=== PATIENT | female | born 1965 | race Caucasian/White ===

== ENCOUNTER 2017-12-31 14:33 | Outpatient (CLI) | payer BC | END 2017-12-31 14:34 | disposition home or self-care (01) | LOC: BICMAMMO 14:33 | PROVIDERS: ATTEND Student in an Organized Health Care Education/Training Program | DX: N64.52 Nipple discharge (principal); N64.4 Mastodynia | CPT/HCPCS: 77066; G0279 ==

== ENCOUNTER 2018-01-07 07:37 | Outpatient (CLI) | payer BC ==
[2018-01-07] MEDS ORDERED: Gadobenate Dimeglumine 529 MG/1 ML (20ML VIAL) ONE (13:57)
== END 2018-01-07 07:38 | disposition home or self-care (01) ==
LOC: BICMRI 07:37
PROVIDERS: ATTEND Student in an Organized Health Care Education/Training Program
DX: N64.52 Nipple discharge (principal)
CPT/HCPCS: A9579; C8908

== ENCOUNTER 2018-06-11 16:52 | Observation (INO) | payer BC ==
[2018-06-11] MEDS ORDERED: Nitroglycerin 0.4 MG TAB (25 Tab Bottle) ONE (17:28)
[2018-06-11 17:32] LABS: #Basophils 0.1 thou/uL (0.0-0.2); #Eosinphils 0.2 thou/uL (0.0-0.7); #Lymphocytes 2.4 thou/uL (1.20-3.40); #Monocytes 0.5 thou/uL (0.11-0.59); #Neutrophils 3.5 thou/uL (1.40-6.50); %Basophils 1.1 % (0.0-1.0); %Eosinophils 2.6 % (0.0-10.0); %Lymphocytes 35.7 % (21.0-51.0); %Monocytes 7.8 % (0.0-10.0); %Neutrophils 52.8 % (42.0-75.0); Hemoglobin 15.4 g/dL (12.0-16.0); Mean Corpuscular HGB CONC 34.3 g/dL (32.0-36.0); Mean Corpuscular Hemoglobin 34.3 pg (27.0-31.0); Mean Corpuscular Volume 99.8 fL (78.0-98.0); Mean Platelet Volume 7.9 fL (7.4-10.4); Platelet Count 198 thou/uL (130-400); RBC Distribution Width 11.8 % (11.5-14.5); White Blood Cell (WBC) Count 6.7 thou/uL (4.8-10.8)
[2018-06-11 17:53] LABS: ALT (SGPT) 33 U/L (8-55); AST (SGOT) 22 U/L (5-34); Albumin 4.4 g/dL (3.5-5.0); Alkaline Phosphatase 79 U/L (40-150); Anion Gap 13 mmol/L (10-20); BUN (Urea Nitrogen) 13 mg/dL (9.8-20.1); Bilirubin, Total 0.5 mg/dL (0.2-1.2); CK (CPK) 96 U/L (29-168); Calc. Creatinine Clearance 0 mL/min (70-130); Calcium 9.4 mg/dL (7.8-10.44); Carbon Dioxide 24 mmol/L (22-29); Chloride 104 mmol/L (98-107); Estimated GFR-MDRD 74; Globulin 2.8 g/dL (2.4-3.5); Glucose 106 mg/dL (70-105); Lipase 22 U/L (8-78); Potassium 3.4 mmol/L (3.5-5.1); Protein, Total 7.2 g/dL (6.0-8.3); Sodium 138 mmol/L (136-145)
--- NOTE | 2018-06-11 17:57 | RAD ---
CHEST ONE VIEW: 06/11/18 HISTORY: Chest pain. COMPARISON: None. FINDINGS: Mild increased interstitial markings of the lung bases. Mild reverse S-shaped scoliosis. Cardiac silh ouette and mediastinal contours are within normal limits. IMPRESSION: Mild increase interstitial markings in the lung bases may be sequela of atypical infectious process. POS: [facility]
[2018-06-11 19:08] LABS: CKMB 0.8 ng/mL (0-6.6); Troponin I Less than 0.010 ng/mL (< 0.028)
[2018-06-11] MEDS ORDERED: Acetaminophen 325 MG TAB PO PRN (21:42)
[2018-06-11] MEDS ORDERED: Ondansetron HCl/PF 4 MG/2 ML Vial IVP PRN (21:42)
[2018-06-11] MEDS ORDERED: Zolpidem Tartrate 5 MG TAB PO PRN (21:44)
[2018-06-11] MEDS ORDERED: ALPRAZolam 0.5 MG TAB PO PRN (21:44)
--- NOTE | 2018-06-11 23:36 | HP ---
PRIMARY CARE PHYSICIAN: Jose Juan Marmolejo M.D. CODE STATUS: FULL CODE. TIME OF EVALUATION: 8:35 p.m. CHIEF COMPLAINT: Chest pain. HISTORY OF PRESENT ILLNESS: This is a 53 years old female patient with past medical history of hypertension. The patient came to the hospital after having a chest pain that was on the left lower rib cage area, occasionally radiating to the right, with no clear triggers, no alleviating factors, pain was on and off. The patient reported her father with acute WI at the age of 50s associated with nausea. REVIEW OF SYSTEMS: Constitutional: No fever or chills or generalized weakness. Respiratory: No cough, sputum production or shortness of breath. Cardiovascular: The patient had chest pain, no palpitations. Gastrointestinal : No nausea, vomiting, diarrhea or abdominal pain. PATIENT ADMITTING CLERK: No dizziness, headache or feeling lightheaded. Genitourinary: No burning on urination. Extremities: No leg swelling. All other systems were reviewed and negative except for the findings mentioned above. PAST MEDICAL HISTORY: History of hypertension. PAST SURGICAL HISTORY: Breast reduction, orthopedic surgery, right shoulder surgery. PSYCHIATRIC HISTORY: Includes anxiety, depression. SOCIAL HISTORY: The patient drinks socially every week, 3-4 times a week drinks wine. FAMILY HISTORY : Reviewed and non contributory for current presentation. KNOWN ALLERGIES: None. REPORTED MEDICATIONS: Hydrochlorothiazide, lisinopril, Xanax, Ambien. PHYSICAL EXAMINATION: VITAL SIGNS: On presentation, blood pressure 160/80 with heart rate 74, respiratory rate was 16, temperature 98.1, pain was zero, and O2 saturation was 99. GENERAL APPEARANCE: The patient is alert, oriented, not in any acute distress. HEENT: Eyes: Normal conjunctivae. Moist oral mucosa. Anicteric. NECK: No JVD. RESPIRATORY: Bilateral air entry. No rales, no wheezing. Symmetric expansion. CARDIOVASCULAR: Normal rate, regular rhythm. No murmurs, no gallop. No edema. ABDOMEN: Soft, normal bowel sounds. MUSCULOSKELETAL: Baseline range of motion and strength. No tenderness. SKIN: Warm and intact. No pallor, no rash, no redness. Peripheral pulses are present. Capillary refill seems to be intact. Needle was not inserted. No evidence of any new focal weakness. Baseline speech. Cranial nerves seem to be intact. PSYCHIATRIC: The patient is in good mood, no anxiety, oriented, optimal judgement. EKG was reviewed. The patient had normal sinus rhythm with a rate of 69 with occasional PVCs, incomplete RBBB. Chest x-ray was reviewed. The patient has mild increased interstitial markings in the lungs basis may be sequela of a typical infectious process. LABORATORY DATA: The labs were reviewed. The patient has white count of 6.7, hemoglobin 15.4, hematocrit 44.9, MCV 99.8, platelet count 198. Sodium 138, potassium 3.4, chloride 104, carbon dioxide 24, anion gap 13, BUN 13, creatinine 0.8, GFR 74, glucose 106, calcium 9.4, total bilirubin 0.5, AST 22, ALT 33, alkaline phosphatase 79, CK 96, troponin was negative. Serum total protein 7.2, albumin 4.4, globulin 2.8, lipase 22. ASSESSMENT AND PLAN: The patient will be placed in the hospital with the following medical problems. 1. Chest pain, rule out acute coronary syndrome. The patient has negative troponin, nondiagnostic EKG. We will keep her on a monitor overnight. We will trend troponins, stress test has been discussed with the patient, the risks and benefits have been discussed in detail. She is willing to take the test in the morning tomorrow, we will treat depending on test results. 2. Uncontrolled high blood pressure with systolic blood pressure of 160, we will reconcile home medications, might need IV p.r.n. for optimal control. 3. Deep venous thrombosis prophylaxis. MTDD
[2018-06-12 00:25] LABS: Troponin I Less than 0.010 ng/mL (< 0.028)
[2018-06-12 03:33] LABS: Troponin I Less than 0.010 ng/mL (< 0.028)
[2018-06-12 04:39] LABS: #Basophils 0.1 thou/uL (0.0-0.2); #Eosinphils 0.2 thou/uL (0.0-0.7); #Lymphocytes 2.3 thou/uL (1.20-3.40); #Monocytes 0.6 thou/uL (0.11-0.59); #Neutrophils 3.1 thou/uL (1.40-6.50); %Eosinophils 3.3 % (0.0-10.0); %Lymphocytes 36.1 % (21.0-51.0); %Monocytes 10.3 % (0.0-10.0); %Neutrophils 49.4 % (42.0-75.0); Hemoglobin 13.9 g/dL (12.0-16.0); Mean Corpuscular HGB CONC 34.5 g/dL (32.0-36.0); Mean Corpuscular Hemoglobin 34.9 pg (27.0-31.0); Platelet Count 178 thou/uL (130-400); RBC Distribution Width 11.8 % (11.5-14.5); Red Blood Cell (RBC) Count 3.97 mill/uL (4.20-5.40); White Blood Cell (WBC) Count 6.2 thou/uL (4.8-10.8)
[2018-06-12 05:08] LABS: Anion Gap 11 mmol/L (10-20); BUN (Urea Nitrogen) 14 mg/dL (9.8-20.1); Calc. Creatinine Clearance 122 mL/min (70-130); Calcium 8.6 mg/dL (7.8-10.44); Carbon Dioxide 27 mmol/L (22-29); Chloride 108 mmol/L (98-107); Estimated GFR-MDRD 76; Glucose 99 mg/dL (70-105); Potassium 3.9 mmol/L (3.5-5.1); Sodium 142 mmol/L (136-145)
[2018-06-12] MEDS ORDERED: Aspirin 325 MG TAB PO SCH (09:00)
[2018-06-12] MEDS ORDERED: Enoxaparin Sodium 40 MG/0.4 ML SYRINGE SC SCH (09:00)
--- NOTE | 2018-06-12 09:07 | PDOC.PN ---
- Subjective Encounter Start Date: 06/12/18 Encounter Start Time: 08:00 Subjective: no sob/palp/cough or fever - Objective Resuscitation Status: Resuscitation Status FULL:Full Resuscitation MAR Reviewed: Yes Vital Signs & Weight: Vital Signs (12 hours) Temp Pulse Resp BP BP Pulse Ox 06/12/18 07:10 98.1 F 60 16 107/65 99 06/12/18 02:50 63 18 101/56 L 98 06/11/18 21:22 98.2 F 61 18 114/81 98 Weight Weight 205 lb 4.8 oz Result Diagrams: 06/12/18 04:13 06/12/18 04:13 Phys Exam - Physical Examination HEENT: PERRLA, moist MMs Neck: no JVD, supple Respiratory: no wheezing, no rales Cardiovascular: RRR, no significant murmur Gastrointestinal: soft, non-tender, positive bowel sounds Musculoskeletal: no edema, pulses present Neurological: non-focal, moves all 4 limbs Psychiatric: normal affect, A&O x 3 Dx/Plan (1) Chest pain Code(s): R07.9 - CHEST PAIN, UNSPECIFIED Status: Acute Qualifiers: Chest pain type: unspecified Qualified Code(s): R07.9 - Chest pain, unspecified (2) Obesity (BMI 30.0-34.9) Code(s): E66.9 - OBESITY, UNSPECIFIED Status: Chronic (3) HTN (hypertension) Code(s): I10 - ESSENTIAL (PRIMARY) HYPERTENSION Status: Chronic Qualifiers: Hypertension type: essential hypertension Qualified Code(s): I10 - Essential (primary) hypertension - Plan for cardiolite stress test today, has incomplete lbbb -: hemostable -: await stress results * . Review of Systems - Medications/Allergies Allergies/Adverse Reactions: Allergies Allergy/AdvReac Type Severity Reaction Status Date / Time No Known Allergies Allergy Verified 06/11/18 21:36 Medications: Current Medications Acetaminophen (Tylenol) 650 mg PO Q4H PRN PRN Reason: Headache/Fever or Pain Alprazolam (Xanax) 0.5 mg PO HS PRN PRN Reason: Insomnia Aspirin (Aspirin) 325 mg PO DAILY [facility] Last Admin: 06/12/18 08:25 Dose: 325 mg Enoxaparin Sodium (Lovenox) 40 mg SC 0900 [facility] Last Admin: 06/12/18 08:25 Dose: 40 mg Hydrochlorothiazide (Hydrochlorothiazide) 25 mg PO HS [facility] Lisinopril (Zestril) 5 mg PO HS [facility] Ondansetron HCl (Zofran) 4 mg IVP Q6H PRN PRN Reason: Nausea/Vomiting Zolpidem Tartrate (Ambien) 5 mg PO HS PRN PRN Reason: Insomnia
[2018-06-12 17:15] VITALS: BP 102/58; TEMP 97.5
--- NOTE | 2018-06-12 17:20 | NM ---
NUCLEAR MEDICINE CARDIAC STRESS TEST WITH EJECTION FRACTION 06/12/18 HISTORY: Chest pain. COMPARISON: None. FINDINGS: Stress and rest performed after the intravenous administration of 30 and 11 millicuries technetium 99 m Sestamibi, respectively. There is adequate left ventricular uptake of radiotracer. No scar or ischemia. Normal wall motion. Ca lculated ejection fraction is 82%. IMPRESSION: Normal nuclear medicine cardiac stress and ejection fraction. POS: [facility]
[2018-06-12] MEDS ORDERED: Lisinopril 5 MG TAB PO SCH (21:00)
[2018-06-12] MEDS ORDERED: Hydrochlorothiazide 25 MG TAB PO SCH (21:00)
--- NOTE | 2018-06-15 09:57 | DIS ---
DATE OF ADMISSION: 06/11/2018 DATE OF DISCHARGE: 06/12/2018 DISCHARGE DISPOSITION: To home. PRIMARY DISCHARGE DIAGNOSIS: Chest pain, which is noncardiac. SECONDARY DISCHARGE DIAGNOSES: Hypertension, obesity. PROCEDURES DONE DURING HOSPITALIZATION: Chest x-ray done showed him to mild increase in interstitial markings. Nuclear stress test done showed no scar or ischemia and normal wall motion with ejection fraction of 82%. H&H 13 and 40, white count of 6 with 49% neutrophils. Troponin x3 negative CK-MB 0 .8. BNP 11. DISCHARGE MEDICATIONS: Hydrochlorothiazide 25 mg p.o. at bedtime, Xanax 0.5 mg p.o. at bedtime p.r.n . for insomnia, lisinopril 5 mg p.o. at bedtime, zolpidem 5 mg p.o. at bedtime p.r.n. ALLERGIES: No known drug allergies. DISCHARGE PLAN: The patient to follow up with primary care physician in 1 week. BRIEF COURSE DURING HOSPITALIZATION: The patient initially came in with complaints of chest pain in the left lower ribcage area. In view of risk factors, the patient was placed under observation on te lemetry and has had ACS evidence based protocol followed. She has had 3 sets of troponin, which are negative and a nuclear stress test done showed no reversible ischemia. She has remained chest pain f ree and will be shortly discharged home. She needs follow up with her primary care physician in 1 we ek. Please see a [id number] documentation for the day of discharge on [facility].
--- NOTE | 2018-06-18 09:28 | STRESS ---
Acquisition Time: 2018-06-12 15:40:08 Total Exercise Time: 00:08:00 Test Indications: CHEST PAIN Medications: Protocol: DEN Max HR: 157 BPM 93% of Pred: 168 BPM Max BP: 166/080 mmHG Max Work Load: 10.1 METS THE PATIENT EXERCISED FOR 8:00 ON A DEN PROTOCOL. PEAK HEART RATE =157 BPM AND TARGET HEART RATE = 143 BPM. SHE DID NOT DEVELOP CHEST PAIN. THERE WAS NO SIGNIFICANT ST DEPRESSION WITH EXERCISE. NORMAL EXERCISE TREADMILL TEST. AWAIT NUCLEAR IMAGES FOR DEFINITIVE DIAGNOSIS. Confirmed by ZOHRA SNIDER ([id number]), scientific publications editor NASIR UGALDE ([id number]) on 06/18/2018 9:28:03 AM Referred By: Confirmed By:ZOHRA SNIDER
== END 2018-06-12 18:12 | disposition home or self-care (01) ==
LOC: ERS 16:52 → 2SW 19:22
PROVIDERS: ADMIT Hospitalist; ATTEND Hospitalist
DX: R07.89 Other chest pain (principal); I10 Essential (primary) hypertension; F41.9 Anxiety disorder, unspecified; F32.9 Major depressive disorder, single episode, unspecified; E66.9 Obesity, unspecified; Z68.31 Body mass index [BMI] 31.0-31.9, adult; Z79.899 Other long term (current) drug therapy
CPT/HCPCS: 36415; 71045; 78452; 80048; 80053; 82550; 82553; 83690; 83880; 84484; 85025; 93005; 93017; 96360; 96361; 96372; A9500; G0378; J1650

== ENCOUNTER 2020-08-22 09:58 | Outpatient (CLI) | payer BC ==
--- NOTE | 2020-08-22 10:48 | ULT ---
LIMITED LEFT BREAST ULTRASOUND: HISTORY: Palpable abnormality at the 11 o'clock position of the retroareolar left breast. FINDINGS: Correlation is made with mammogram of same day. Sonographic evaluation of the region of palpable con cern at the 11 o'clock position of the retroareolar left breast demonstrates no abnormality. IMPRESSION: BIRADS category 2 - benign findings. Return to annual mammographic screening. POS: [facility]
--- NOTE | 2020-08-22 10:49 | MMO ---
Bilateral MAMMO Bilat Diag DDI+JAS. CLINICAL HISTORY: Patient is 55 years old and is seen for diagnostic exam and lump or thickening in the left breast. The patient has no family history of breast cancer. The patient has no personal history of cancer. The patient has a history of bilateral Breast reduction in 2009 and right needle biopsy at age 40 - benign. VIEWS: The views performed were: bilateral craniocaudal with tomosynthesis; bilateral mediolateral oblique with tomosynthesis; and bilateral mediolateral with tomosynthesis. FILMS COMPARED: The present examination has been compared to prior imaging studies performed at [facility] on 02/10/2019, and at [facility] on 01/17/2016, 12/31/2017 and 08/22/2020. This study has been interpreted with the assistance of computer-aided detection. MAMMOGRAM FINDINGS: The breasts are heterogeneously dense, which could obscure a lesion on mammography. Benign calcifications are noted bilaterally. There are stable left post-operative changes. No mammographic or sonograhic abnormality is seen at the site of palpable concern in the left retroaerolar breast. There are no suspicious masses, suspicious calcifications, or new areas of architectural distortion. IMPRESSION: THERE IS NO MAMMOGRAPHIC EVIDENCE OF MALIGNANCY. A ROUTINE FOLLOW-UP MAMMOGRAM IN 1 YEAR IS RECOMMENDED. THE RESULTS OF THIS EXAM WERE SENT TO THE PATIENT. ACR BI-RADS Category 2 - Benign finding MAMMOGRAPHY NOTE: 1. A negative mammogram report should not delay a biopsy if a dominant of clinically suspicious mass is present. 2. Approximately 10% to 15% of breast cancers are not detected by mammography. 3. Adenosis and dense breasts may obscure an underlying neoplasm. Reported by: NEIL CHAVEZ MD Electonically Signed: [id number]
== END 2020-08-22 09:59 | disposition home or self-care (01) ==
LOC: BICMAMMO 09:58
PROVIDERS: ATTEND Student in an Organized Health Care Education/Training Program
DX: N63.20 Unspecified lump in the left breast, unspecified quadrant (principal)
CPT/HCPCS: 77066; G0279

== ENCOUNTER 2021-08-27 10:11 | Outpatient (CLI) | payer BC | END 2021-08-27 10:12 | disposition home or self-care (01) | LOC: BICMAMMO 10:11 | PROVIDERS: ATTEND Student in an Organized Health Care Education/Training Program | DX: Z12.31 Encounter for screening mammogram for malignant neoplasm of breast (principal); Z98.890 Other specified postprocedural states | CPT/HCPCS: 77063; 77067 ==

== ENCOUNTER 2023-07-20 12:53 | Outpatient (CLI) | payer BC | END 2023-07-20 12:54 | disposition home or self-care (01) | LOC: BICMAMMO 12:53 | PROVIDERS: ATTEND Internal Medicine | DX: Z12.31 Encounter for screening mammogram for malignant neoplasm of breast (principal); Z91.89 Other specified personal risk factors, not elsewhere classified; Z98.890 Other specified postprocedural states | CPT/HCPCS: 77063; 77067 ==

== ENCOUNTER 2025-07-25 12:49 | Outpatient (CLI) | payer BC | END 2025-07-25 12:50 | disposition home or self-care (01) | LOC: BICMAMMO 12:49 | PROVIDERS: ATTEND Obstetrics & Gynecology | DX: Z12.31 Encounter for screening mammogram for malignant neoplasm of breast (principal); Z85.828 Personal history of other malignant neoplasm of skin; Z98.890 Other specified postprocedural states; Z91.89 Other specified personal risk factors, not elsewhere classified | CPT/HCPCS: 77063; 77067 ==